=== PATIENT | female | born 1990 | race Hispanic/Latino ===

== ENCOUNTER → 2023-11-27 09:16 | Outpatient (REF) | payer OTHER, SELFPAY ==
[2023-11-27 11:23] LABS: Glycohemoglobin (HgbA1c) 6.7 % (4.0-5.6)
[2023-11-27 14:32] LABS: Free T4 0.85 ng/dl (0.78-2.19)
[2023-11-27 14:39] LABS: ALT (SGPT) 67 U/L (0-35); AST (SGOT) 41 U/L (14-36); Albumin 4.1 g/dl (3.5-5.0); Alkaline Phosphatase 89 U/L (38-126); Blood Urea Nitrogen 16 mg/dl (7-17); Carbon Dioxide 26 mmol/L (22-30); Chloride 105 mmol/L (98-107); Glucose 105 mg/dl (70-99); Potassium 4.7 mmol/L (3.5-5.1); Sodium 136 mmol/L (135-145); Total Bilirubin 0.2 mg/dl (0.2-1.3); Total Protein 7.2 g/dl (6.3-8.2); eGFR > 60.00
== END ==
LOC: CLINIC 09:16
PROVIDERS: ATTENDING PHYSICIAN Nurse Practitioner Adult Health
DX: E03.9 Hypothyroidism, unspecified (principal); E11.9 Type 2 diabetes mellitus without complications
CPT/HCPCS: 36415; 80053; 83036; 84439; 84443

== ENCOUNTER → 2024-02-13 07:14 | Outpatient (REF) | payer OTHER, SELFPAY ==
[2024-02-13 09:46] LABS: Glycohemoglobin (HgbA1c) 6.3 % (4.0-5.6)
[2024-02-13 09:48] LABS: ALT (SGPT) 68 U/L (0-35); AST (SGOT) 53 U/L (14-36); Albumin 4.2 g/dl (3.5-5.0); Alkaline Phosphatase 79 U/L (38-126); Blood Urea Nitrogen 14 mg/dl (7-17); Calcium 9.4 mg/dl (8.4-10.2); Carbon Dioxide 25 mmol/L (22-30); Chloride 105 mmol/L (98-107); Glucose 113 mg/dl (70-99); Potassium 4.5 mmol/L (3.5-5.1); Sodium 139 mmol/L (135-145); Total Bilirubin 0.4 mg/dl (0.2-1.3); Total Protein 7.2 g/dl (6.3-8.2); eGFR > 60.00
[2024-02-13 09:58] LABS: Free T4 0.85 ng/dl (0.78-2.19)
== END ==
LOC: REG 07:14
PROVIDERS: ATTENDING PHYSICIAN Nurse Practitioner Adult Health
DX: E11.9 Type 2 diabetes mellitus without complications (principal); K75.81 Nonalcoholic steatohepatitis (NASH); E03.9 Hypothyroidism, unspecified
CPT/HCPCS: 36415; 80053; 83036; 84439; 84443

== ENCOUNTER → 2024-03-14 09:33 | Outpatient (REF) | payer OTHER, SELFPAY ==
[2024-03-14 11:37] LABS: Beta HCG Quantitative < 2.39 mIU/ml; FSH 5.7 mIU/ml; Progesterone 0.16 ng/ml; Prolactin 22.1 ng/ml (3.0-18.6)
== END ==
LOC: REG 09:33
PROVIDERS: ATTENDING PHYSICIAN Nurse Practitioner Acute Care
DX: E03.9 Hypothyroidism, unspecified (principal)
CPT/HCPCS: 36415; 82671; 83001; 84144; 84146; 84270; 84402; 84403; 84439; 84443; 84702

== ENCOUNTER 2024-05-13 21:52 | Emergency (ER) | payer OTHER, SELFPAY ==
[2024-05-13 22:07] VITALS: BP 160/98
[2024-05-13 22:52] LABS: Beta HCG Quantitative 109.65 mIU/ml
[2024-05-14 02:30] LABS: Urine Albumin Negative (Neg - Trace); Urine Bilirubin Negative (Negative); Urine Character Clear (Clear); Urine Color Straw; Urine Glucose Negative (Negative); Urine Ketone Negative (Negative); Urine Leukocyte 1+ (Negative); Urine Nitrite Negative (Negative); Urine Occult Blood 2+ (Negative); Urine Specific Gravity 1.005 (<1.030); Urine Urobilinogen Negative (Neg - 1+)
[2024-05-14 02:46] VITALS: BP 147/84
--- NOTE | 2024-05-14 02:55 | ED.GENMED ---
History of Present Illness
General
Chief Complaint: Problems
Source: patient
Exam Limitations: none
Time Seen by Provider: 05/14/24 00:40
Nursing documentation reviewed up to this point in time: agreed with
History of Present Illness
History of Present Illness:
The patient is a 33-year-old female with a past medical history of miscarriage, who reports that she has been bleeding vaginally for the last 5 days and had a positive test at home. Patient reports she has a past medical history of
irregular menstrual periods ' due to her thyroid gland'. She reports that she last had a menstrual period in December. She reports breast tenderness. Patient reports she does not have an [facility] doctor. She reports the bleeding has now stopped.
Past History
Past History
ED Past Medical History: Hypothyroidism and Psychiatric (anxiety)
ED Past Surgical History: None
Social History
Tobacco: Non-smoker
Alcohol: None
Drug: None
Personal:
Living: with family
Family History
Family History: Other
Review of Systems
Review of Systems
All Other Systems: ROS reviewed and negative except as documented in HPI and ROS
Constitutional: Reports no symptoms
EENT: Reports no symptoms
Respiratory: Reports no symptoms
Cardiac: Reports no symptoms
ABD/GI: Reports no symptoms
: Reports bleeding
Musculoskeletal: Reports no symptoms
Skin: Reports no symptoms
Neurological: Reports no symptoms
Endocrine: Reports no symptoms
Hematologic/Lymphatic: Reports no symptoms
Psychiatric: Reports no symptoms
Phy Exam
Physical Exam
Physical Exam:
Physical Exam
General: no apparent distress, not acutely ill, well and comfortable appearing
Neck: supple. no meningeal signs. normal psoterior pharynx
Heart: s1/s2 regular rate and rhythm, no murmur. equal radial pulses.
Lungs: no acute respiratory distress. clear bilaterally
Abdomen: normal bowel sounds. not tender. no CVAT
Neuro: alert and oriented. no focal neurological deficits
Skin: no rash
Psychiatric: well kept. interactive and cooperative
Extremities: no edema. no calf tenderness. negative homans. good distal pulses
Course
Orders/Labs/Results
Orders:
Orders
05/13/24 22:16
Type+Screen Urgent
HCG, Beta Quantitative [Beta HCG Quantitative] Urgent
Is this a screen?: No
05/13/24 22:46
ABO2 Routine
BBK Wristband Number:
Associate notified that ABO2 has been ordered: JÚNIOR
Date: 05/13/24
Time: 22:33
Oceanographer Physical ID: [id number]
05/14/24 00:40
US W Transvaginal Urgent
Reason For Exam: vag bleeding
05/14/24 02:02
Urinalysis Urgent
Date Specimen was Collected: 05/14/24
Time Specimen was Collected: 02:00
Urine Microscopic Urgent
Date Specimen was Collected: 05/14/24
Time Specimen was Collected: 02:00
Abnormal Lab Results
05/14/24
02:02
Urine Occult Blood 2+ A
(Negative)
Ur Leukocyte Esterase 1+ A
(Negative)
Vital Signs
Initial and Last Documented VS:
Initial Vital Signs
Temp Pulse Resp BP Pulse Ox
97.8 F 76 20 160/98 100
05/13/24 22:07 05/13/24 22:07 05/13/24 22:07 05/13/24 22:07 05/13/24 22:07
Last Documented Vital Signs
Temp Pulse Resp BP Pulse Ox
97.8 F 71 20 147/84 100
05/13/24 22:07 05/14/24 02:46 05/14/24 02:46 05/14/24 02:46 05/14/24 02:46
Information
Weeks gestation: Weeks:
Location: Location:
MDM/Problems Addressed
Differential Diagnosis Includes:
Threatened , early IUP, ectopic
MDM/Problems Addressed:
Patient presents with positive test and acute vaginal bleeding
Acute Exacerbation and/or Progression of Chronic Illness:
Patient is acutely hypertensive and encouraged to have her blood pressure rechecked with the [facility] within 1 week
Acute Exacerbation and/or Progression of Chronic Illness: HTN
*Radiology
Radiology exam reviewed: radiology read reviewed
*Pulse Oximetry
Patient hypoxic: no
*EKG
Interpreted by ED Provider?: NA
*Gunstock Spray Unit Adjuster Interpretation
Rate: Gunstock Spray Unit Adjuster- N/A
*Critical Care Note
Total Time (30-74mins, 75-104mins- exclusive of procedures): Not Applicable
Data Reviewed
Source: patient and other (bilingual case manager via iPad)
Patient Management
Social determinants of health affecting care: Living situation and Strong social support
Discussion with other providers: Other (Patient's case discussed with Dr. Flores who agreed to have the patient follow-up with her as an outpatient)
Update Note
Update Note:
Patient remains extremely well and comfortable. She is having no pain. Her bleeding is now gone. Patient understands the importance of having repeat beta-hCG in 48 hours. I gave patient a prescription to get this blood work done. Patient also
understands the importance of following up with [facility] for follow-up and blood pressure follow-up
ED Attending Note
-
Portions of this chart may have been created with voice recognition software.� Occasional wrong word or��sound alike� substitutions may have occurred due to the inherent limitations of voice recognition software.
Discharge Plan
Departure
Patient Disposition: Home (Routine Discharge)
Date of Disposition: 05/14/24
Time of Disposition: 02:45
Patient with high blood pressure during this ER visit?: Yes
Condition: Good
Covid-19: Not Applicable
Discharge Problem:
Miscarriage, threatened, early
Instructions: Threatened Miscarriage (DC), BLOOD PRESSURE
Prescriptions:
New
vit 10-iron fum-folic 65-1 mg tablet
1 tab PO DAILY Qty: 30 0RF
No Action
nitrofurantoin monohyd/m-cryst [Macrobid] 100 mg capsule
100 mg PO BID Qty: 10 0RF
Referrals:
Esperanza Watson CRNP [Family Provider] -
Margarita Flores MD [Active] - (Call to schedule an appointment as soon as possible)
Activity Restrictions/Additional Instructions:
Please call [facility] tomorrow morning to schedule an appointment for soon as possible.
You will also need to get blood work done on 05/16/2024
Interventions
Interventions:
*Risk Screen - Suicide Last Done: 05/13/24 22:07
*General Assessment Last Done: 05/13/24 22:55
*Neglect/Abuse Screening Last Done: 05/13/24 22:07
ED- Fall Risk Assessment Last Done: 05/14/24 02:55
*ED COVID-19 Vaccine History Last Done: 05/13/24 22:55
*Nursing Disposition Last Done: 05/14/24 02:55
ED-Female Genitourinary Assessment Last Done: 05/13/24 22:55
Discharge Date and Time
Discharge Date/Time: 05/14/24 02:56
Print Language: SWISS
[2024-05-14 03:15] LABS: Urine Amorphous Seen; Urine Bacteria Moderate (Negative); Urine Red Blood Cell 0-2 /HPF (0-2); Urine Squamous Cell >30 /LPF (Few); Urine White Cell 0-2 /HPF (0-5)
== END 2024-05-14 02:56 | disposition home or self-care (01) ==
LOC: EMR 21:52
PROVIDERS: EMERGENCY PHYSICIAN Emergency Medicine; FAMILY PHYSICIAN Nurse Practitioner Psychiatric/Mental Health
DX: O20.0 Threatened abortion (principal); R03.0 Elevated blood-pressure reading, without diagnosis of hypertension; E03.9 Hypothyroidism, unspecified; F41.9 Anxiety disorder, unspecified; E11.9 Type 2 diabetes mellitus without complications; Z79.84 Long term (current) use of oral hypoglycemic drugs
CPT/HCPCS: 99284; 76801; 76817; 81003; 81015; 84702; 86850; 86900; 86901

== ENCOUNTER → 2024-10-25 07:02 | Outpatient (REF) | payer OTHER, SELFPAY ==
[2024-10-25 09:09] LABS: ALT (SGPT) 31 U/L (0-35); AST (SGOT) 24 U/L (14-36); Albumin 3.9 g/dl (3.5-5.0); Alkaline Phosphatase 77 U/L (38-126); Blood Urea Nitrogen 19 mg/dl (7-17); Calcium 9.1 mg/dl (8.4-10.2); Carbon Dioxide 26 mmol/L (22-30); Chloride 105 mmol/L (98-107); Glucose 116 mg/dl (70-99); HDL Cholesterol 36 mg/dl; LDL Cholesterol, Calculated 130 mg/dl; Potassium 4.4 mmol/L (3.5-5.1); Sodium 138 mmol/L (135-145); Total Bilirubin 0.4 mg/dl (0.2-1.3); Total Cholesterol 211 mg/dl (50-199); Total Protein 7.1 g/dl (6.3-8.2); Triglyceride 226 mg/dl (10-149); Very Low Density Lipoprotein 45 mg/dl (0-30); eGFR > 60.00
[2024-10-25 09:11] LABS: Free T4 1.39 ng/dl (0.78-2.19); Vitamin D, 25-OH*** 24.9 ng/mL (30-80)
[2024-10-25 09:17] LABS: Glycohemoglobin (HgbA1c) 6.1 % (4.0-5.6)
[2024-10-25 09:25] LABS: TSH 0.15 uIU/ml (0.47-4.68)
== END ==
LOC: CLINIC 07:02
PROVIDERS: ATTENDING PHYSICIAN Nurse Practitioner Adult Health
DX: E03.9 Hypothyroidism, unspecified (principal); E11.9 Type 2 diabetes mellitus without complications; Z00.00 Encounter for general adult medical examination without abnormal findings
CPT/HCPCS: 36415; 80053; 80061; 82306; 83036; 84439; 84443

== ENCOUNTER → 2025-01-28 06:19 | Outpatient (REF) | payer OTHER, SELFPAY ==
[2025-01-28 07:54] LABS: ALT (SGPT) 31 U/L (0-35); AST (SGOT) 21 U/L (14-36); Albumin 3.8 g/dl (3.5-5.0); Alkaline Phosphatase 68 U/L (38-126); Blood Urea Nitrogen 17 mg/dl (7-17); Calcium 9.4 mg/dl (8.4-10.2); Carbon Dioxide 25 mmol/L (22-30); Chloride 109 mmol/L (98-107); Glucose 132 mg/dl (70-99); Potassium 4.6 mmol/L (3.5-5.1); Sodium 140 mmol/L (135-145); Total Bilirubin 0.5 mg/dl (0.2-1.3); Total Protein 6.8 g/dl (6.3-8.2); eGFR > 60.00
[2025-01-28 08:07] LABS: Free T4 1.38 ng/dl (0.78-2.19)
[2025-01-28 08:21] LABS: TSH 0.05 uIU/ml (0.47-4.68)
[2025-01-28 08:58] LABS: Glycohemoglobin (HgbA1c) 6.1 % (4.0-5.6)
== END ==
LOC: CLINIC 06:19
PROVIDERS: ATTENDING PHYSICIAN Nurse Practitioner Adult Health
DX: E03.9 Hypothyroidism, unspecified (principal); E11.9 Type 2 diabetes mellitus without complications; K75.81 Nonalcoholic steatohepatitis (NASH)
CPT/HCPCS: 36415; 80053; 83036; 84439; 84443

== ENCOUNTER 2025-05-28 15:49 | Emergency (ER) | payer SELFPAY ==
[2025-05-28 15:53] VITALS: BP 154/98
[2025-05-28 16:16] LABS: Urine Character Clear (Clear)
[2025-05-28 18:00] VITALS: BMI 38.8
--- NOTE | 2025-05-28 18:14 | ED.GENMED ---
History of Present Illness
General
Chief Complaint: Abdominal Pain
Source: patient
Exam Limitations: none
Time Seen by Provider: 05/28/25 17:54
History of Present Illness
History of Present Illness:
34-year-old female Nauruan-speaking only presents complaining of 3 days worth of worsening lower abdominal pain. The pain is bilateral. Pain does not radiate to the back. She has a history of bilateral salpingectomy. 1 due from ectopic
. Last menstrual cycle was 22 days ago. She denies fevers or vomiting. No diarrhea. No urinary symptoms. She tried ibuprofen which helped a little bit. No other complaints at this time
Past History
Past History
ED Past Medical History: Hypothyroidism and Psychiatric (anxiety)
ED Past Surgical History: None
Social History
Tobacco: Non-smoker
Alcohol: None
Drug: None
Personal:
Living: with family
Family History
Family History: Other
Phy Exam
Physical Exam
Physical Exam:
General: Well-developed female in no acute respiratory distress
HEENT normal cephalic
Heart: Regular rate and rhythm
Lungs: Clear no wheeze
Abdomen is soft but tender to the lower abdomen bilaterally. No guarding nondistended no costovertebral angle tenderness
Skin is warm no rash
Extremities: No cyanosis
Course
Orders/Labs/Results
Orders:
Orders
05/28/25 15:56
Test Result ONCE
05/28/25 16:09
Urinalysis Reflex To Culture Urgent
Date Specimen was Collected: 05/28/25
Time Specimen was Collected: 15:56
05/28/25 18:17
Ketorolac [Toradol] 15 mg IV NOW STA
05/28/25 18:19
Complete Blood Count/With Diff Urgent
Comprehensive Metabolic Panel Urgent
HCG, Serum Qualitative Screen Urgent
05/28/25 18:43
CT Abd/pelvis W Iv Cont Urgent
Comment:
Reason For Exam: lower abdominal pain
Abnormal Lab Results
05/28/25
18:19
WBC 10.9 H 10^3/uL
(4.8-10.8)
MCH 26.6 L pg
(27.0-31.0)
MCHC 32.1 L g/dL
(33.0-37.0)
Abs Immat Gran (auto) 0.1 H 10^3/uL
(0-0.05)
Absolute Neuts (auto) 6.8 H 10^3/uL
(1.4-6.5)
Absolute Monos (auto) 0.8 H 10^3/uL
(0.1-0.6)
AST 42 H U/L
(14-36)
ALT 46 H U/L
(0-35)
Total Protein 8.6 H g/dl
(6.3-8.2)
05/28/25 18:19
05/28/25 18:19
Vital Signs
Initial and Last Documented VS:
Initial Vital Signs
Temp Pulse Resp BP Pulse Ox
98.5 F 86 18 154/98 98
05/28/25 15:53 05/28/25 15:53 05/28/25 15:53 05/28/25 15:53 05/28/25 15:53
Last Documented Vital Signs
Temp Pulse Resp BP Pulse Ox
98.5 F 71 18 123/72 100
05/28/25 15:53 05/28/25 18:28 05/28/25 18:28 05/28/25 18:28 05/28/25 18:28
MDM/Problems Addressed
Differential Diagnosis Includes:
Patient with lower abdominal pain. Last menstrual cycle 22 days ago. She has a history of an ectopic . She states both fallopian tubes have been removed. Unlikely to be another ectopic. test pending will check labs. Will
start with CT of the abdomen. Toradol ordered for pain
*Pulse Oximetry
SaO2: 98
Oxygen Mode of Delivery: Room air
Patient hypoxic: no
*Critical Care Note
Total Time (30-74mins, 75-104mins- exclusive of procedures): Not Applicable
Update Note
Update Note:
Work appear essentially unremarkable. Liver functions only slightly elevated urinalysis normal CT shows potential cystitis however with normal urine do not feel that clinically this matches. Will advise ibuprofen or Tylenol for pain as well as
omeprazole. Will recommend GI follow-up if symptoms persist. No indication for admission. Stable for discharge
ED Attending Note
-
Portions of this chart may have been created with voice recognition software.� Occasional wrong word or��sound alike� substitutions may have occurred due to the inherent limitations of voice recognition software.
Discharge Plan
Departure
Patient Disposition: Home (Routine Discharge)
Date of Disposition: 05/28/25
Time of Disposition: 21:22
Patient with high blood pressure during this ER visit?: No
Discharge Problem:
Abdominal pain
Instructions: Abdominal Pain
Prescriptions:
New
omeprazole 40 mg capsule,delayed release(DR/EC)
40 mg PO DAILY Qty: 14 0RF
No Action
nitrofurantoin monohyd/m-cryst [Macrobid] 100 mg capsule
100 mg PO BID Qty: 10 0RF
vit 10-iron fum-folic 65-1 mg tablet
1 tab PO DAILY Qty: 30 0RF
Referrals:
Fransisca Nieves MD [Active, Gastroenterology]
NONE,* [Family Provider, Internal Medicine]
Activity Restrictions/Additional Instructions:
Eat a bland diet. Use Tylenol or ibuprofen for pain. Use antacid as directed. If symptoms persist consider following up with GI. Return if worse otherwise
Interventions
Interventions:
*Risk Screen - Suicide Last Done: 05/28/25 15:53
*General Assessment Last Done: 05/28/25 15:53
*Neglect/Abuse Screening Last Done: 05/28/25 15:53
*ED- Fall Risk Assessment Last Done: 05/28/25 15:53
*ED COVID-19 Vaccine History Last Done: 05/28/25 15:53
*ED Influenza Vaccine History Last Done: 05/28/25 15:53
JN-Pxpxlk-Eomzevdqkw Assessment Last Done: 05/28/25 18:02
Discharge Date and Time
Print Language: CYMRO
[2025-05-28] MEDS: TORADOL 15 MG IV (18:24)
[2025-05-28 18:25] LABS: Hematocrit 42.7 % (37.0-47.0); Hemoglobin 13.7 g/dL (12.0-16.0); Mean Corp Hgb Conc. 32.1 g/dL (33.0-37.0); Mean Corpuscular Volume 82.9 fL (81.0-99.0); Nucleated Red Blood Cells % 0 %; Platelet Count 337 10^3/uL (130-400); Red Cell Dist. Width 13.7 % (11.5-14.5)
[2025-05-28 18:28] VITALS: BP 123/72
[2025-05-28 18:41] LABS: HCG, Serum Qualitative Screen Negative
[2025-05-28 18:42] LABS: ALT (SGPT) 46 U/L (0-35); AST (SGOT) 42 U/L (14-36); Albumin 4.8 g/dl (3.5-5.0); Alkaline Phosphatase 82 U/L (38-126); Blood Urea Nitrogen 13 mg/dl (7-17); Calcium 9.5 mg/dl (8.4-10.2); Carbon Dioxide 25 mmol/L (22-30); Chloride 102 mmol/L (98-107); Estimated Creatinine Clearance 125 ml/min; Glucose 88 mg/dl (70-99); Potassium 4.4 mmol/L (3.5-5.1); Sodium 138 mmol/L (135-145); Total Protein 8.6 g/dl (6.3-8.2); eGFR > 60.00
[2025-05-28 22:14] VITALS: BP 123/81
== END 2025-05-28 22:17 | disposition home or self-care (01) ==
LOC: EMR 15:49
PROVIDERS: Student in an Organized Health Care Education/Training Program; EMERGENCY PHYSICIAN Emergency Medicine
DX: R10.30 Lower abdominal pain, unspecified (principal); E03.9 Hypothyroidism, unspecified; F41.9 Anxiety disorder, unspecified
CPT/HCPCS: 99284; 96374; 74177; 80053; 81003; 84703; 85025; Q9967

== ENCOUNTER → 2025-07-07 07:24 | Outpatient (REF) | payer OTHER, SELFPAY ==
[2025-07-07 08:56] LABS: ALT (SGPT) 37 U/L (0-35); AST (SGOT) 27 U/L (14-36); Albumin 4.1 g/dl (3.5-5.0); Alkaline Phosphatase 78 U/L (38-126); Blood Urea Nitrogen 10 mg/dl (7-17); Calcium 9.0 mg/dl (8.4-10.2); Carbon Dioxide 30 mmol/L (22-30); Chloride 102 mmol/L (98-107); Glucose 127 mg/dl (70-99); Potassium 4.1 mmol/L (3.5-5.1); Sodium 136 mmol/L (135-145); Total Protein 7.3 g/dl (6.3-8.2); eGFR > 60.00
[2025-07-07 09:06] LABS: Glycohemoglobin (HgbA1c) 6.3 % (4.0-5.9)
[2025-07-07 09:14] LABS: Vitamin D, 25-OH*** 23.3 ng/mL (30-80)
[2025-07-07 09:28] LABS: TSH 4.88 uIU/ml (0.47-4.68)
== END ==
LOC: CLINIC 07:24
PROVIDERS: ATTENDING PHYSICIAN Nurse Practitioner Adult Health
DX: E11.9 Type 2 diabetes mellitus without complications (principal); E03.9 Hypothyroidism, unspecified; E55.9 Vitamin D deficiency, unspecified
CPT/HCPCS: 36415; 80053; 82306; 83036; 84439; 84443